=== PATIENT | female | born 1950 | race Caucasian/White ===

== ENCOUNTER 2016-11-19 13:27 | Inpatient (IN) | payer OTHER ==
[~2016-11-19] VITALS: Ht 165.1 cm; Wt 74.1 kg
--- NOTE | ~2016-11-19 | HC ---
[facility] [place] [address] CONSULTATION Name: MICHI LINARES Room #: 511-P ADM IN M.R.#: [id number] Admission: 11/19/16 Attend Phys: Bethel Duval MD Discharge: Date of : 52 Report #: [id number] THIS REPORT FOR: //name// CC: Bethel Duval [facility] physician/PCP DATE OF SERVICE: 11/27/2016 NEUROBEHAVIORAL STATUS EXAM AGE: 66. ATTENDING PHYSICIAN: Bethel Duval M.D. GASTROENTEROLOGY PROFESSOR: Skyler Lubin, PhD CLINICAL PRESENTATION: The patient is a 66-year-old female admitted to the [facility] rehabilitation unit for a comprehensive inpatient rehabilitation program to improve functional mobility, activities of daily living and self-care and mental status secondary to a left hemisphere cerebrovascular accident. Her diagnoses include an acute vascular accident in the left internal capsule adjacent to the left thalamus and chronic small left frontal lobe infarction. She also has a right foot drop, at risk for shoulder-hand syndrome, gait ataxia due to stroke, hypertension, atrial fibrillation and a right facial droop. A complete description of her medical condition and history along with medications can be found in her medical record. Neuropsychological consultation was requested to provide assistance in the assessment of cognitive and emotional status and to provide recommendations and services. Prior to this most recent medical event, she was living independently at [facility]. She has one child that has a disability. The patient is . She has one brother. She is a high school graduate. 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 TECHNIQUES UTILIZED: Clinical interview, review of medical records, staff consultation and behavioral observation, mini mental status exam 2 standard version, and verbal fluency assessment, calibrated ideational fluency assessment (letter and category). EXAMINATION FINDINGS: The patient was alert and cooperative with the assessment. She accurately described events surrounding her admission. There is no evidence of aphasia. Her thoughts are logical and goal oriented. There is no evidence of thought disorder. She does not report auditory or visual hallucinations. She reports her symptoms to include anxiety in regard to her medical recovery and issues of placement and return to her prior functional [facility] [address] [place] [address] CONSULTATION Name: MICHI LINARES Room #: 511-P [facility] IN M.R.#: [id number] Admission: 11/19/16 Attend Phys: Bethel Duval MD Discharge: Date of : 52 Report #: [id number] level. She does not report difficulty with memory, word finding, sleep, appetite, energy or depression. Her performance on the MMSE 2 standard version was within normal limits. The MMSE 2 brief version was 15 of 16. She was oriented to place and time. She was 2/3 for immediate recall of 3 items after a brief time delay and distraction. Her performance on the MMSE 2 standard version was within normal limits with a raw score of 26 of 30, which is a T score of 45. She was 3/5 for serial sevens. The patient's upper extremity dexterity was not assessed as she has a right hemiparesis secondary to the stroke. Her letter fluency score was in the average range with a raw score of 23 and a T score of 44. Category fluency was within normal limits with a raw score of 38 and a T score of 43. Total fluency score was a raw score at 61, a T score of 43, which is within normal limits. 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 Adjustment disorder with anxious mood. RECOMMENDATIONS: Psychological services as needed. The patient will benefit from specific educational information about the implications of the stroke on cognition and behavior, and methods for compensation to assist in her ability to return to independent living. Initial assistance in organization, planning and problem solving will increase safety. Thank you very much for allowing me to provide the consultation on this patient. <ELECTRONICALLY SIGNED> By: Skyler Lubin, PhD 12/04/16 1540 [id number] Skyler Lubin, PhD /nt
--- NOTE | ~2016-11-19 | PLAN ---
[facility] [place] [address] REHAB UNIT PLAN OF CARE Name: MICHI LINARES Room #: 511-P ADM IN M.R.#: [id number] Admission: 11/19/16 Attend Phys: Bethel Duval MD Discharge: Date of : 52 Report #: [id number] THIS REPORT FOR: //name// CC: Bethel Duval [facility] physician/PCP DATE OF SERVICE: 11/22/2016 HISTORY OF PRESENT ILLNESS: The patient is seen back today in followup. PHYSICAL EXAMINATION: GENERAL: She is in no distress. VITAL SIGNS: Last recorded temperature is 98.5, pulse of 99, respirations 20 and blood pressure 120/75. NEUROLOGIC: She can shrug right shoulder. She is able to flex her elbow and extend her elbow a grade 3 to 3+. She can wiggle that thumb slightly at 3+. No movement of the fingers was noted. Right knee extension is a grade 3. No movement of the ankle. No elbow flexion. Transfers are min assist. She has been nonambulatory. In occupational therapy, upper body dressing is max and lower body is max. Speech therapy, she has [id number] comprehensive deficits; mechanical soft, thin liquids. ASSESSMENT: 1. Dominant right-sided flaccid hemiparesis secondary to acute cerebrovascular accident. 2. Acute infarction of the left internal capsule adjacent to the left thalamus and chronic small left frontal lobe infarction. 3. Right foot drop. 4. Gait ataxia due to stroke. 5. Hypertension. 6. Atrial fibrillation. 7. Right facial droop. PLAN: The overall plan of care is based on the preadmission screen, post-admission physician evaluation and information garnered from therapy assessments. 1. Estimated length of stay is going to the several weeks depending upon her progress. 2. Medical prognosis is reasonably good. 3. Anticipated interventions includes the interdisciplinary acute inpatient rehabilitation program with PT, OT, speech, rehab nursing working with her case management and the multiple financial planning consultant physicians along with the interdisciplinary acute rehabilitation team. 4. Anticipated functional outcomes would be for her to improve to hopefully become ambulatory. Hopefully, we can get to the point where we could brace that right ankle and try to get her up. We will need to see how much recovery she [facility] [address] [place] [address] REHAB UNIT PLAN OF CARE Name: MICHI LINARES Room #: 511-P ADM IN .R.#: [id number] Admission: 11/19/16 Attend Phys: Bethel Duval MD Discharge: Date of : 52 Report #: [id number] has of that right upper extremity as well. Goal is to maximize her functional independence with mobility and ADLs and comprehension so that she can return back to the home setting. 5. Discharge destination is probably going to be home with daughter here in the [place] area. She does eventually want to return back to the [facility]. 6. Expected therapy by discipline includes PT, OT and speech one hour per day each 5 days a week throughout the duration of the acute inpatient rehabilitation stay. <ELECTRONICALLY SIGNED> By: Bethel Duval MD 11/30/16 1515 [id number] Bethel Duval MD /nt
--- NOTE | ~2016-11-19 | H ---
[facility] [place] [address] HISTORY AND PHYSICAL Name: MICHI LINARES Room #: 511-P ADM IN M.R.#: [id number] Admission: 11/19/16 Attend Phys: Bethel Duval MD Discharge: Date of : 52 Report #: [id number] THIS REPORT FOR: //name// CC: Bethel Duval [facility] physician/PCP DATE OF SERVICE: 11/20/2016 REFERRING PHYSICIAN: Dr. Taylor. CHIEF COMPLAINT: Mobility and self-care deficits due to acute cerebrovascular accident. HISTORY OF PRESENT ILLNESS: The patient is a 66-year-old right hand dominant female, admitted to an outside facility at the [facility] in the [facility] secondary to what was found to be a cerebrovascular accident. She has a history of hypertension and atrial fibrillation. She developed right hemiparesis and facial droop. An MRI performed on 11/17/2016 was read as showing an acute infarction of the left internal capsule posterior limb adjacent to the left thalamus and an old left small frontal infarction. She was transferred to [facility] for comprehensive rehabilitation as her daughter lives close by. Due to a decline in her overall function and the need for rehabilitation management of her complex medical condition, she is being admitted. Note, I am covering for Dr. Bethel Duval and therefore completing this history and physical for him. PAST MEDICAL HISTORY: As above, also pertinent for hypertension, anxiety, atrial fibrillation, tobacco abuse. MEDICATIONS: Reviewed and reconciled. I note that she is receiving Xanax for anxiety. Please see the written documentation of this history and physical for full details. FUNCTIONAL HISTORY: Before admission, she was independent with mobility and activities of daily living. SOCIAL HISTORY: She is . She lives in her own home. It is a one level home at the [facility]. There is caregiver availability. 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 The patient is a smoker. She smokes 1 pack of cigarettes per day. ALLERGIES: No known drug allergies. FAMILY HISTORY: Noncontributory. [facility] [address] [place] [address] HISTORY AND PHYSICAL Name: MICHI LINARES Room #: 511-P [facility] IN M.R.#: [id number] Admission: 11/19/16 Attend Phys: Bethel Duval MD Discharge: Date of : 52 Report #: [id number] REVIEW OF SYSTEMS: As above. Specifically, she denies chest pain, shortness of breath, fevers or chills. She denies visual field cut. Otherwise, remainder of the 12-point review is negative except for what was stated above. PHYSICAL EXAMINATION: GENERAL: No acute distress, well-developed, well-nourished, afebrile. CARDIOVASCULAR: S1, S2. LUNGS: Clear to auscultation. ABDOMEN: Soft, nontender, nondistended, positive bowel sounds. EXTREMITIES: Calves are nontender. LYMPHATICS: No cervical adenopathy. MUSCULOSKELETAL: Functionally, she is unable to dorsiflex her wrist or extend her fingers on the right. She has a very little power to move the right arm. She can shrug the right shoulder. She was unable to dorsiflex the right ankle. She is very weak in her right leg. Tone is flaccid. No shoulder subluxation identified. NEUROLOGIC AND PSYCHIATRIC: Coordination is poor. Muscle stretch reflexes 1/4 and symmetric. Sensation is diminished in her right foot. She is alert. She is able to answer my questions. She was pleasant and cooperative with the exam. There was no evidence of a right visual field cut. No evidence of right-sided neglect. Voice was strong. No signs of dysarthria or dysphasia. She was pleasant and cooperative. Her mood is euthymic. IMPRESSION: Mobility and self-care deficits in a 66-year-old right right-hand dominant female secondary to: 1. Dominant-sided flaccid hemiparesis secondary to acute cerebrovascular accident. 2. Acute infarction of the left internal capsule adjacent to the left thalamus and chronic small left frontal lobe infarction. 3. Right foot drop. 4. At risk for shoulder-hand syndrome. 5. Gait ataxia due to stroke. 6. Hypertension. 7. Atrial fibrillation. 8. Right facial droop. PLAN: 1. Admit to the rehabilitation unit under the services of Dr. Duval who will return to the office on November 22. 2. Please see the plan of care, post-admission physician evaluation and admission orders for full details of her rehabilitation care plan. 3. Discussed rehabilitation program with her in detail and she is in agreement. 4. Weekly team conferences to discuss her rehabilitation progress. 5. Develop the rehabilitation program with her therapy team. I discussed her swallowing function with Tuyet, her speech therapist this morning. [address] [address] HISTORY AND PHYSICAL Name: MICHI LINARES Room #: 511-P [facility] IN M.R.#: [id number] Admission: 11/19/16 Attend Phys: Bethel Duval MD Discharge: Date of : 52 Report #: [id number] 6. Right AFO for foot drop. 7. She is a candidate for functional electrical stimulation to help hasten the recovery of the right arm and right leg. 8. Shoulder-hand protection with a sling for the right upper extremity as she is at risk for shoulder-hand syndrome. 9. Bowel and bladder program 10. Nutrition needs. POST-ADMISSION PHYSICIAN EVALUATION: A post-admission physician evaluation has been completed. The patient's preadmission screening was reviewed in its entirety by this examiner. The current clinical status is supported by the information contained within. The patient is an appropriate candidate to undergo a comprehensive inpatient rehabilitation program consisting of daily physical therapy, occupational therapy and speech therapy 3 hours a day for at least 5 days a week. Furthermore, nothing has changed since the preadmission screening was completed to suggest that the patient would not be able to tolerate or benefit from the rehabilitation program. It is my opinion that inpatient rehabilitation, rather than [facility], is more appropriate for the patient due to her multiple medical needs requiring comprehensive followup care. The patient is at risk of clinical complications during her participation in rehabilitation including the following: Additional stroke, risk for falls and injury, risk for skin breakdown, risk for debilitation, worsening condition or even . My plan to manage these conditions which could impact her participation in rehabilitation is to consult Internal Medicine to follow her closely during her rehabilitation course. INDIVIDUALIZED OVERALL PLAN OF CARE: SUMMARIZATION OF FINDINGS: The patient is in receiving inpatient rehabilitation due to the following functional impairments: 1. Right flaccid hemiparesis, dominant side. 2. Right foot drop. 3. Dysarthria, mild. 4. Ataxia due to stroke. 5. At risk for shoulder-hand syndrome. 6. Impaired gait. IDENTIFIED INTERVENTIONS: Include physical therapy, occupational therapy and speech therapy to address her mobility, self-care deficits, communication, cognition and swallowing impairments. Physical Medicine and Rehabilitation will provide management of her rehabilitation care plan. Internal Medicine will follow her for multiple medical issues. Rehabilitation nursing care is available 24 hours a day for care needs. manager creative services will help her with discharge planning and medical equipment needs. Dietitian consultation for [address] [address] HISTORY AND PHYSICAL Name: MICHI LINARES Room #: 511-P [facility] IN M.R.#: [id number] Admission: 11/19/16 Attend Phys: Bethel Duval MD Discharge: Date of : 52 Report #: [id number] nutritional purposes is available. ESTIMATED LENGTH OF STAY: Approximately 21 days, which is in agreement with the preadmission screen. ANTICIPATED FUNCTIONAL OUTCOME: Modified independence with mobility and self-care skills. This is a realistic goal based on her previous level of function and her progress thus far with therapies. ANTICIPATED DISCHARGE DESTINATION: Home with caregiver. She will likely need home health services at that time versus an intensive day program. MEDICAL PROGNOSIS: Fair. She will continue to receive internal medicine followup. ANTICIPATED THERAPIES: Physical therapy, occupational therapy, and speech therapy, 3 hours a day 5 days a week for an anticipated duration of 21 days. SUMMARIZATION OF TREATMENT PLAN: The patient will continue to receive an inpatient rehabilitation program as outlined above in an effort to improve her overall function and return home at a modified independent level within 21 days. <ELECTRONICALLY SIGNED> By: Bethel Duval MD 11/30/16 1505 [id number] Toan Bal DO /nt
[2016-11-19] MEDS ORDERED: CARDIZEM CD120 MG PO (15:54)
[2016-11-19] MEDS ORDERED: ASPIR 8181 M1 (16:19)
[2016-11-19] MEDS ORDERED: VITAMINC500 PO ×2 (16:20→16:27)
[2016-11-19] MEDS ORDERED: GARLIC1 EACH PO (16:21)
[2016-11-19] MEDS ORDERED: CENTRUM SILVER1 EAC4 PO (16:24)
[2016-11-19] MEDS ORDERED: MELATONIN5 M1 PO (16:25)
[2016-11-19] MEDS ORDERED: ELIQUIS5 MG PO (16:26)
[2016-11-19] MEDS ORDERED: CRANBERRY PLUS1 EAC1 PO (16:28)
[2016-11-19 19:15] VITALS: BP 189/109
[2016-11-19 19:44] VITALS: BP 209/117
[2016-11-19 21:01] VITALS: BP 182/109
[2016-11-20 02:26] VITALS: BP 156/95
[2016-11-20 05:24] VITALS: BP 158/100
[2016-11-20 06:17] LABS: CHOLESTEROL 202 mg/dL (<200); HDL CHOLESTEROL 41 mg/dL (>40); LDL CHOLESTEROL 147 mg/dL (<100); TC:HDL 4.9 Ratio (Not establshd); TRIGLYCERIDE 72 mg/dL (<150); VLDL 14 mg/dL (<40)
[2016-11-20 06:19] LABS: SERUM ASSESSMENT Clear
[2016-11-20 09:00] VITALS: BP 147/96
[2016-11-20 16:00] VITALS: BP 150/104
[2016-11-21 05:09] VITALS: BP 148/84
[2016-11-21 16:00] VITALS: BP 181/105
[2016-11-21 20:10] VITALS: BP 146/81
[2016-11-22 05:33] VITALS: BP 120/75
[2016-11-22 16:00] VITALS: BP 174/94
[2016-11-23 04:38] LABS: ABSOLUTE NEUTROPHILS 3.9 thou/uL (1.4-8.2); EOSINOPHILS 3.6 % (0.0-3.0); HEMATOCRIT 42.2 % (37.0-47.0); HEMOGLOBIN 14.3 gm/dL (12.0-15.0); LYMPHOCYTES 29.9 % (24.0-44.0); MCH 29.6 pg (26.0-34.0); MCHC 33.9 g/dL (28.0-37.0); MCV 87.3 fL (80.0-100.0); MONOCYTES 11.2 % (1.0-8.0); PLATELET COUNT 181 thou/uL (150-400); POLYS 54.3 % (36.0-66.0); RBC 4.83 mil/uL (4.20-5.00); RDW 14.1 % (10.5-14.5); WBC 7.1 thou/uL (4.0-11.0)
[2016-11-23 04:40] VITALS: BP 137/97
[2016-11-23 04:43] LABS: MANUAL DIFF NO
[2016-11-23 04:47] LABS: ALBUMIN 3.3 g/dL (3.4-5.0); CALCIUM 8.8 mg/dL (8.5-10.1); CREATININE 0.8 mg/dL (0.6-1.0); POTASSIUM 3.8 mmol/L (3.5-5.1); TOTAL BILIRUBIN 0.5 mg/dL (<0.1-1.0)
[2016-11-23 16:00] VITALS: BP 159/98
[2016-11-23 20:56] VITALS: BP 159/91
[2016-11-24 05:38] VITALS: BP 130/89
[2016-11-24 15:30] VITALS: BP 145/97
[2016-11-24 20:32] VITALS: BP 155/101
[2016-11-24 21:15] VITALS: BP 157/106
[2016-11-24 23:15] VITALS: BP 135/92
[2016-11-25 05:27] VITALS: BP 152/98
[2016-11-25 15:03] VITALS: BP 144/96
[2016-11-25 20:40] VITALS: BP 147/89
[2016-11-26 03:12] VITALS: BP 130/84
[2016-11-26 03:18] LABS: ABSOLUTE NEUTROPHILS 4.3 thou/uL (1.4-8.2); BASOPHILS 0.9 % (0.0-2.0); EOSINOPHILS 4.5 % (0.0-3.0); HEMATOCRIT 42.5 % (37.0-47.0); HEMOGLOBIN 14.5 gm/dL (12.0-15.0); LYMPHOCYTES 29.1 % (24.0-44.0); MCH 29.9 pg (26.0-34.0); MCHC 34.2 g/dL (28.0-37.0); MCV 87.4 fL (80.0-100.0); MONOCYTES 10.4 % (1.0-8.0); PLATELET COUNT 214 thou/uL (150-400); POLYS 55.1 % (36.0-66.0); RBC 4.86 mil/uL (4.20-5.00); RDW 14.1 % (10.5-14.5); WBC 7.8 thou/uL (4.0-11.0)
[2016-11-26 03:21] LABS: MANUAL DIFF NO
[2016-11-26 03:30] LABS: CREATININE 0.8 mg/dL (0.6-1.0); POTASSIUM 3.9 mmol/L (3.5-5.1)
[2016-11-26 18:45] VITALS: BP 159/110
[2016-11-27 06:13] VITALS: BP 132/94
[2016-11-27 16:00] VITALS: BP 142/94
[2016-11-28 06:15] VITALS: BP 146/81
[2016-11-28 15:43] VITALS: BP 116/95
[2016-11-28 20:12] VITALS: BP 147/82
[2016-11-29 04:50] VITALS: BP 123/71
[2016-11-29 16:00] VITALS: BP 158/98
[2016-11-30 05:26] VITALS: BP 144/91
[2016-11-30 16:00] VITALS: BP 141/84
[2016-11-30 20:01] VITALS: BP 142/98
[2016-12-01 05:59] VITALS: BP 132/76
[2016-12-01 08:00] VITALS: BP 80/55
[2016-12-01 11:45] VITALS: BP 145/88
[2016-12-01 18:44] VITALS: BP 142/78
[2016-12-02 03:53] VITALS: BP 136/93
[2016-12-02 15:19] VITALS: BP 145/94
[2016-12-02 20:30] VITALS: BP 145/92
[2016-12-03 06:03] VITALS: BP 135/86
[2016-12-03 08:30] VITALS: BP 138/98
[2016-12-03 15:56] VITALS: BP 154/93
[2016-12-03 20:36] VITALS: BP 131/87
[2016-12-04 04:30] VITALS: BP 132/64
[2016-12-04 15:30] VITALS: BP 146/101
[2016-12-05 05:09] VITALS: BP 123/77
[2016-12-05 17:00] VITALS: BP 146/95
[2016-12-06 06:04] VITALS: BP 128/65
[2016-12-06 09:00] VITALS: BP 153/99
[2016-12-06 16:00] VITALS: BP 146/84
[2016-12-07 04:00] VITALS: BP 102/72
[2016-12-07 13:45] VITALS: BP 149/93
[2016-12-07 15:41] VITALS: BP 152/83
[2016-12-07] MEDS ORDERED: LIPITOR10 MG PO (16:12)
[2016-12-07] MEDS ORDERED: LOPRESSOR50 PO (16:12)
[2016-12-08 06:11] VITALS: BP 122/86
[2016-12-08 08:13] VITALS: BP 127/90
== END 2016-12-08 14:10 | DRG 65 ==
PROVIDERS: Internal Medicine Endocrinology, Diabetes & Metabolism; Nurse Practitioner; Nurse Practitioner Family
DX: I63.9 Cerebral infarction, unspecified (principal); G81.91 Hemiplegia, unspecified affecting right dominant side; M21.371 Foot drop, right foot; I10 Essential (primary) hypertension; I48.91 Unspecified atrial fibrillation; R29.810 Facial weakness; R27.0 Ataxia, unspecified; G31.84 Mild cognitive impairment of uncertain or unknown etiology; F43.22 Adjustment disorder with anxiety; K59.00 Constipation, unspecified; F17.210 Nicotine dependence, cigarettes, uncomplicated; E78.5 Hyperlipidemia, unspecified; R13.10 Dysphagia, unspecified
CPT/HCPCS: 10112